=== PATIENT | female | born 1940 | race Caucasian/White ===

== ENCOUNTER 2017-01-16 09:05 | Outpatient (CLI) | payer MEDICARE ==
[2017-01-16 12:57] LABS: #Eosinphils 0.3 thou/uL (0.0-0.7); #Lymphocytes 2.3 thou/uL (1.20-3.40); #Monocytes 0.7 thou/uL (0.11-0.59); #Neutrophils 3.8 thou/uL (1.40-6.50); %Basophils 0.7 % (0.0-1.0); %Eosinophils 3.5 % (0.0-10.0); %Lymphocytes 31.8 % (21.0-51.0); %Monocytes 10.2 % (0.0-10.0); %Neutrophils 53.8 % (42.0-75.0); Hemoglobin 13.5 g/dL (12.0-16.0); Mean Corpuscular HGB CONC 34.3 g/dL (32.0-36.0); Mean Corpuscular Hemoglobin 32.2 pg (27.0-31.0); Mean Corpuscular Volume 93.8 fl (81.0-99.0); Mean Platelet Volume 7.6 fL (7.4-10.4); Platelet Count 212 thou/uL (130-400); RBC Distribution Width 13.1 % (11.5-14.5); Red Blood Cell (RBC) Count 4.18 mill/uL (4.20-5.40); White Blood Cell (WBC) Count 7.1 thou/uL (4.8-10.8)
[2017-01-16 13:49] LABS: ALT (SGPT) 45 U/L (0-55); AST (SGOT) 52 U/L (5-34); Alkaline Phosphatase 79 U/L (40-150); Anion Gap 17 mmol/L (10-20); BUN (Urea Nitrogen) 10 mg/dL (9.8-20.1); Bilirubin, Total 0.3 mg/dL (0.2-1.2); Calc. Creatinine Clearance 0 mL/min (70-130); Calcium 9.1 mg/dL (7.8-10.44); Carbon Dioxide 25 mmol/L (23-31); Cardiac Risk 4.5 (Less than 4.5); Chloride 104 mmol/L (98-107); Cholesterol 234 mg/dL (< 200 Desired); Estimated GFR-MDRD Greater than 90; Globulin 2.8 g/dL (2.4-3.5); Glucose 87 mg/dL (83-110); HDL Cholesterol 52 mg/dL (>60 Neg Risk); LDL Cholesterol, Calculated 110 mg/dL; Potassium 4.5 mmol/L (3.5-5.1); Protein, Total 6.8 g/dL (5.8-8.1); Sodium 141 mmol/L (136-145); Triglycerides 362 mg/dL (Less than 150)
[2017-01-16 14:07] LABS: Bilirubin Negative (Negative); Blood, Urine Negative (Negative); Clarity Clear (Clear); Glucose, Urine (Dipstick) Negative (Negative); Leukocyte Negative (Negative); Nitrite Negative (Negative); Protein, Urine (Dipstick) Negative (Neg-Trace); Specific Gravity, Urine 1.015 (1.005-1.030); Urobilinogen 0.2 mg/dL (0.2-1.0)
== END 2017-01-16 09:06 | disposition home or self-care (01) ==
LOC: NAVSJIPCSP 09:05
PROVIDERS: ATTEND Internal Medicine
DX: E78.5 Hyperlipidemia, unspecified (principal); I20.9 Angina pectoris, unspecified; I10 Essential (primary) hypertension
CPT/HCPCS: 36415; 80053; 80061; 81003; 84443; 85025

== ENCOUNTER 2019-05-05 08:49 | Outpatient (CLI) | payer MEDICARE ==
[2019-05-05] MEDS ORDERED: Iopamidol 370 76% 100 ML VIAL ONE (09:00)
--- NOTE | 2019-05-05 11:52 | CT ---
CT ABDOMEN AND PELVIS WITH IV CONTRAST: HISTORY: Elevated LFTs. FINDINGS: There are minimal dependent changes in the lung bases. The liver demonstrates decreased attenuation compared to the spleen consistent with fatty infiltration. No calcified gallstones are seen. There is borderline splenomegaly measuring 13.4 cm in the AP dimension. The pancreas, adrenal glands, and kidneys are normal. No free air, free fluid, or lymphadenopathy is seen in the abdomen or pelvis. The small bowel loops are not abnormally dilated. A normal-appearing appendix is seen. There is colonic diverticulosis wi thout diverticulitis. A small hiatal hernia is noted. The patient is post hysterectomy. There are vascular calcifications without evidence of aneurysmal d ilatation of the abdominal aorta. There are degenerative changes in the spine. IMPRESSION: 1. Fatty liver. 2. Borderline splenomegaly. 3. Small hiatal hernia. 4. Colonic diverticulosis. POS: [facility]
== END 2019-05-05 08:50 | disposition home or self-care (01) ==
LOC: NAV CT 08:49
PROVIDERS: ATTEND Internal Medicine
DX: R94.5 Abnormal results of liver function studies (principal); K76.0 Fatty (change of) liver, not elsewhere classified; R16.1 Splenomegaly, not elsewhere classified; K44.9 Diaphragmatic hernia without obstruction or gangrene; K57.30 Diverticulosis of large intestine without perforation or abscess without bleeding
CPT/HCPCS: 36415; 74177; 82565; Q9967

== ENCOUNTER 2020-06-24 09:46 | Outpatient (CLI) | payer MEDICARE ==
--- NOTE | 2020-06-24 10:04 | RAD ---
Exam:Left humerus 2 views HISTORY: Pain COMPARISON: None FINDINGS: Severe degenerative changes of glenohumeral joint space. There is sclerosis and osteophyte formation. No fracture or dislocation. Visualized left ribs and lung parenchyma do not demonstrate any acute abnormality. 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
--- NOTE | 2020-06-24 10:05 | RAD ---
Exam:Left shoulder 3 view HISTORY: Pain COMPARISON: None FINDINGS: Severe degenerative change of the glenohumeral joint space. There is sclerosis and osteophy te formation. No fracture or dislocation. There is a prominent subacromial spur. Visualized left lung parenchyma and ribs do not demonstrate acute abnormality. IMPRESSION: Degenerative changes of the left shoulder as described above. No dislocation or fracture.
== END 2020-06-24 09:47 | disposition home or self-care (01) ==
LOC: NAV RAD 09:46
PROVIDERS: ATTEND Internal Medicine
DX: M79.602 Pain in left arm (principal); M19.012 Primary osteoarthritis, left shoulder